=== PATIENT | female | born 1970 | race Caucasian/White ===

== ENCOUNTER → 2017-12-13 | Outpatient (CLI) | payer OTHER | LOC: FIMAGING 11:40 | PROVIDERS: ATTEND Obstetrics & Gynecology | DX: Z12.31 Encounter for screening mammogram for malignant neoplasm of breast (principal) ==

== ENCOUNTER → 2018-09-10 | Outpatient (CLI) | payer OTHER | LOC: BMCIMAGING 13:05 | PROVIDERS: ATTEND Internal Medicine | DX: R07.9 Chest pain, unspecified (principal) ==

== ENCOUNTER → 2018-09-12 | Outpatient (CLI) | payer OTHER ==
[~2018-09-12] MED LIST: IOPAMIDOL (ISOVUE 370) 100 ML BTL IV ONE
== END ==
LOC: FIMAGING 13:27
PROVIDERS: ATTEND Internal Medicine
DX: R07.9 Chest pain, unspecified (principal)
CPT/HCPCS: Q9967

== ENCOUNTER → 2018-12-15 | Outpatient (CLI) | payer OTHER | LOC: FIMAGING 14:58 | PROVIDERS: ATTEND Internal Medicine | DX: Z12.31 Encounter for screening mammogram for malignant neoplasm of breast (principal) ==

== ENCOUNTER 2018-12-18 09:18 | Day surgery (SDC) | payer OTHER ==
[2018-12-18] MEDS ORDERED: OXYMETAZOLINE 30 ML NASAL SPRAY ONE (09:36)
[2018-12-18] MEDS ORDERED: LR 1,000 ML IV ONE (09:43)
[2018-12-18] MEDS ORDERED: MIDAZOLAM 2 MG/2 ML VIAL IVP ONE (11:40)
--- NOTE | 2018-12-18 11:40 | PDANEPAE ---
ANE History of Present Illness here for microlaryngoscopy ANE Past Medical History - Cardiovascular History Hx Hypertension: No Hx Arrhythmias: No Hx Chest Pain: No Hx Coronary Artery / Peripheral Vascular Disease: No Hx CHF / Valvular Disease: No Hx Palpitations: No - Pulmonary History Hx COPD: No Hx Asthma/Reactive Airway Disease: No Hx Recent Upper Respiratory Infection: No Hx Oxygen in Use at Home: No Hx Sleep Apnea: No Sleep Apnea Screening Result - Last Documented: Negative - Neurologic History Hx Cerebrovascular Accident: No Hx Seizures: Yes Hx Dementia: No Neurologic History Comment: seizures as small child around 4 or 5 yrs, dilantin x1 yr, no seizures since - Endocrine History Hx Diabetes: No Endocrine History Comment: hypothyroidism - Renal History Hx Renal Disorders: No - Liver History Hx Hepatic Disorders: No - Neurological & Psychiatric Hx Hx Neurological and Psychiatric Disorders: Yes Neurological / Psychiatric History Comment: anxiety while going through divorce - Congenital Disorder History Hx Congenital Disorders: No - GI History Hx Gastrointestinal Disorders: Yes Gastrointestinal History Comment: reflux- recently started omeprazole - Other Health History Other Health History: slight rash on face - Chronic Pain History Chronic Pain: No - Surgical History Prior Surgeries: tonsillectomy as child. 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 2016 hernia repair ANE Review of Systems Review of systems is: negative Review of Systems: - Exercise capacity Exercise capacity: >=4 METS METS (RN): 4 METS ANE Patient History - Allergies Allergies/Adverse Reactions: No Known Allergies Allergy (Verified 12/12/18 11:05) - Home Medications Home medications: home medication list seen and reviewed Home Medications: Synthroid 10/14/09 [Last Taken 12/17/18] Omeprazole 12/12/18 [Last Taken 12/17/18] - NPO status NPO Status: no food or drink >8 hours NPO Since - Liquids (Date): 12/18/18 NPO Since - Liquids (Time): 07:45 NPO Since - Solids (Date): 12/17/18 NPO Since - Solids (Time): 16:00 - Anes Hx Anes Hx: no prior problems - Smoking Hx Smoking Status: Light smoker - Family Anes Hx Family Hx Anesthesia Complications: none ANE Labs/Vital Signs - Vital Signs Vital Signs: reviewed preoperatively; see RN documention for details Blood Pressure: 104/70 Heart Rate: 67 Respiratory Rate: 16 O2 Sat (%): 98 Height: 170.18 cm Weight: 65.771 kg ANE Physical Exam - Airway Neck exam: FROM Mallampati Score: Class 1 Mouth exam: normal dental/mouth exam - Pulmonary Pulmonary: no respiratory distress - Cardiovascular Cardiovascular: regular rate and rhythym - ASA Status ASA Status: II ANE Anesthesia Plan Anesthesia Plan: general endotracheal anesthesia
--- NOTE | 2018-12-18 11:41 | PDHPUP ---
History & Physical Update H&P update statement: This history and physical update is based on an assessment of the patient which was completed after admission or registration (within 24 hours), but prior to the surgery/procedure. H&P update: H&P reviewed & patient examined, no change in patient's condition since H&P completed, changes noted (no changes)
[2018-12-18] MEDS ORDERED: fentaNYL 100 MCG/2 ML INJ ONE (11:43)
[2018-12-18] MEDS ORDERED: PROPOFOL/EMULSION 500 MG/50 ML BOTTLE IV ONE (11:44)
[2018-12-18] MEDS ORDERED: NALOXONE HCL 0.4 MG/ML INJ IVP PRN ×2 (12:14→13:32)
[2018-12-18] MEDS ORDERED: ALBUTEROL 3 ML DEYVIAL IH PRN (12:14)
[2018-12-18] MEDS ORDERED: fentaNYL 100 MCG/2 ML INJ IVP PRN (12:14)
[2018-12-18] MEDS ORDERED: ONDANSETRON 4 MG/2 ML VIAL IVP PRN (12:14)
[2018-12-18] MEDS ORDERED: oxyCODONE IR 5 MG TAB PO PRN (12:14)
[2018-12-18] MEDS ORDERED: HYDROCODONE/APAP 5/325 TAB PO PRN (12:14)
[2018-12-18] MEDS ORDERED: NS 500 ML IV PRN (12:14)
[2018-12-18] MEDS ORDERED: LR 500 ML IV PRN (12:14)
[2018-12-18] MEDS ORDERED: HYDROmorphONE/DILAUDID 2 MG/ML INJ IVP PRN (12:14)
[2018-12-18] MEDS ORDERED: SUGAMMADEX SODIUM 200 MG/2 ML VIAL IVP ONE (12:19)
--- NOTE | 2018-12-18 12:28 | POSTOPPROG ---
Post Op Note Date of Operation: 12/18/18 Surgeon: Mac Gastelum Supervisor Wound: none Anesthesiologist: Italo Anesthesia: GET(General Endotracheal) Pre-op Diagnosis: left vocal cord cyst Post-op Diagnosis: same Indication: hoarseness Procedure: microlaryngoscopy witth biopsy Findings: cystic lesin left ant TVC Inf/Abcess present in the surg proc area at time of surgery?: No Depth: Superfical (Skin SQ) EBL: Minimal Total fluids administered: 500 Complications: none Specimen(s): left vocal cord lesion
[2018-12-18] MEDS ORDERED: ACETAMINOPHEN 500 MG TAB PO PRN (13:32)
--- NOTE | 2018-12-18 14:39 | POSTANESTH ---
Post Anesthetic Evaluation Cardiovascular Status: Normal, Stable Respiratory Status: Normal, Stable Level of Consciousness/Mental Status: Can Participate in Eval Pain Control: Adequate, Prn Tx Ordered Nausea/Vomiting Control: Adequate, Prn Tx Ordered Complications Possibly Related to Anesthesia: None Noted
[2018-12-18 14:44] VITALS: BP 106/67
--- NOTE | 2018-12-18 16:28 | GOP ---
[f rep st] OPERATIVE REPORT DATE OF OPERATION: 12/18/2018 SURGEON: Tunde Gastelum MD ANESTHESIA: General endotracheal. 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 PROCEDURE PERFORMED: Microlaryngoscopy with excision of cystic lesion left anterior true vocal cord. FINDINGS: Cystic lesion left anterior true vocal cord, treated by excision with microlaryngoscopy. ESTIMATED BLOOD LOSS: 1 mL. DESCRIPTION OF PROCEDURE: The patient was placed on the operating table in the supine position. Aft er induction of adequate general endotracheal anesthesia, sterile draping was performed. A tooth gua rd was placed over the upper teeth to protect them. The Dedo laryngoscope was advanced to the oral c avity and then into the oropharynx. The supraglottis was examined and found to be within normal limi ts. The scope was advanced further. A cystic lesion emanating off the medial aspect of the left ant erior vocal cord was noted to be present. The lesion was grasped with the cup forceps, and as it was gently grasped, it ruptured. The cystic lesion was then completely excised using curved scissors an d cup forceps. The edge of the vocal cord was completely smooth, using cup forceps and at this point , the area of the cystic lesion was treated with Afrin on a cotton ball in order to provide hemostasi s. This was briefly left in position. At this point, the pledget was withdrawn. The patient was th en awakened, transferred to postanesthesia recovery in stable condition. FLUID REPLACED: 500 mL. COMPLICATIONS: None. /[id number]/MODL
== END 2018-12-18 14:35 | disposition home or self-care (01) ==
LOC: FSGY 09:18
PROVIDERS: ATTEND Otolaryngology
PROC: 0CBV8ZZ Excision of Left Vocal Cord, Via Natural or Artificial Opening Endoscopic (ICD-10-PCS; principal; 2018-12-18 10:45)
DX: J38.1 Polyp of vocal cord and larynx (principal); R49.0 Dysphonia
CPT/HCPCS: J2250; J2405; J2704; J3010